=== PATIENT | male | born 1985 | race African-American/Black ===

== ENCOUNTER 2019-04-28 06:52 | Emergency (ER) | payer MEDICAID ==
[~2019-04-28] VITALS: Ht 185.4 cm; Wt 100.0 kg
[2019-04-28 08:27] LABS: CHLORIDE 111 mEq/L (98-107)
[2019-04-28 08:28] LABS: BASOPHILS % 0.1 % (0.0-2.0); EOSINOPHILS % 0.8 % (0.0-5.0); HEMATOCRIT. 46.9 % (42.0-52.0); LYMPHOCYTES % 11.9 % (20.0-50.0); MEAN PLATELET VOLUME 8.7 fl (7.4-10.4); NEUTROPHILS % 81.2 % (40.0-76.0); PLATELET 145 x1000/uL (130-400); RED BLOOD CELL COUNT 5.15 mill/uL (4.7-6.1)
[2019-04-28 08:31] LABS: ETHANOL BLOOD < 10 mg/dL
[2019-04-28 10:15] VITALS: BP 128/70
== END 2019-04-28 10:20 | disposition home or self-care (01) ==
LOC: ER 06:52
DX: G40.909 Epilepsy, unspecified, not intractable, without status epilepticus (principal); F84.0 Autistic disorder; F79 Unspecified intellectual disabilities
CPT/HCPCS: 36415; 80320; 82962; 99283; G0480

== ENCOUNTER 2019-08-31 16:59 | Emergency (ER) | payer MEDICAID ==
[~2019-08-31] VITALS: Ht 185.4 cm; Wt 94.0 kg
[2019-08-31 18:35] LABS: BASOPHILS % 0.4 % (0.0-2.0); EOSINOPHILS % 1.2 % (0.0-5.0); HEMATOCRIT. 46.5 % (42.0-52.0); HEMOGLOBIN. 15.5 g/dL (14.0-18.0); LYMPHOCYTES % 25.1 % (20.0-50.0); MEAN CORPUSCULAR HEMOGLOBIN 30.9 pg (28.0-32.0); MEAN CORPUSCULAR VOLUME 92.8 fL (80.0-94.0); MEAN PLATELET VOLUME 9.2 fl (7.4-10.4); MONOCYTES % 9.7 % (2.0-8.0); NEUTROPHILS % 63.6 % (40.0-76.0); PLATELET 144 x1000/uL (130-400); RED BLOOD CELL COUNT 5.01 mill/uL (4.7-6.1); RED CELL DISTRIBUTION WIDTH 14.4 % (11.6-14.6)
[2019-08-31 18:36] LABS: CHLORIDE 107 mEq/L (98-107)
[2019-08-31 22:07] VITALS: BP 125/78
== END 2019-08-31 22:10 | disposition home or self-care (01) ==
LOC: ER 16:59
DX: G40.909 Epilepsy, unspecified, not intractable, without status epilepticus (principal); R62.50 Unspecified lack of expected normal physiological development in childhood; F84.0 Autistic disorder; W06.XXXA Fall from bed, initial encounter
CPT/HCPCS: 36415; 99283

== ENCOUNTER 2020-06-03 14:36 | Inpatient (IN) | payer MEDICAID ==
[~2020-06-03] VITALS: Ht 172.7 cm; Wt 101.6 kg
[2020-06-03] MEDS ORDERED: SODIUM CHLORIDE 0.9% 1,000 ML IV ONE (16:33)
[2020-06-03] MEDS ORDERED: PROPOFOL 10MG/ML 100ML 100 ML IV ONE ×3 (16:38→20:30)
[2020-06-03] MEDS ORDERED: SUCCINYLCHOLINE CHLORIDE 200MG/10ML IV ONE (16:45)
[2020-06-03] MEDS ORDERED: LEVETIRACETAM 1000MG/100ML 100 ML IV ONE (16:45)
[2020-06-03] MEDS ORDERED: MIDAZOLAM HCL 50 MG in DEXTROSE 5% WATER 40 ML IV ONE (17:00)
[2020-06-03] MEDS ORDERED: LEVETIRACETAM 1000MG/100ML 100 ML IV NR (17:00)
[2020-06-03 17:05] LABS: BASOPHILS % 0.1 % (0.0-2.0); HEMATOCRIT. 48.9 % (42.0-52.0); HEMOGLOBIN. 16.3 g/dL (14.0-18.0); LYMPHOCYTES % 11.6 % (20.0-50.0); MEAN CORPUSCULAR HEMOGLOBIN 31.3 pg (28.0-32.0); MEAN PLATELET VOLUME 9.3 fl (7.4-10.4); MONOCYTES % 7.7 % (2.0-8.0); NEUTROPHILS % 80.6 % (40.0-76.0); PLATELET 174 x1000/uL (130-400); RED CELL DISTRIBUTION WIDTH 14.2 % (11.6-14.6)
[2020-06-03 17:06] LABS: CLARITY URINE CLEAR (CLEAR); COLOR URINE YELLOW (YELLOW); KETONES URINE NEGATIVE (NEGATIVE); LEUKOCYTE ESTERASE URINE NEGATIVE (NEGATIVE); NITRITE URINE NEGATIVE (NEGATIVE); OCCULT BLOOD URINE 2+ (NEGATIVE); PROTEIN URINE 1+ (NEGATIVE); SPECIFIC GRAVITY URINE 1.012 (1.005-1.030); UROBILINOGEN URINE 0.2 E.U./dL (0.2-1.0)
[2020-06-03 17:15] LABS: CHLORIDE 114 mEq/L (98-107)
[2020-06-03] MEDS ORDERED: MIDAZOLAM HCL 50 MG in DEXTROSE 5% WATER 40 ML IV NR (17:15)
[2020-06-03 17:19] LABS: ETHANOL BLOOD < 10 mg/dL
[2020-06-03 17:22] LABS: *AMPHETAMINES SCREEN URINE NEGATIVE (NEGATIVE); *BARBITURATES SCREEN URINE NEGATIVE (NEGATIVE); *BENZODIAZEPINES SCREEN URINE NEGATIVE (NEGATIVE); PHENCYCLIDINE URINE SCREEN NEGATIVE (NEGATIVE)
[2020-06-03 17:23] LABS: *COCAINE SCREEN URINE NEGATIVE (NEGATIVE); CANNABINOID URINE SCREEN NEGATIVE (NEGATIVE); METHADONE URINE SCREEN NEGATIVE (NEGATIVE); OPIATES URINE SCREEN NEGATIVE (NEGATIVE)
[2020-06-03 17:24] LABS: CREATINE KINASE 420 IU/L (39-308)
[2020-06-03] MEDS ORDERED: MIDAZOLAM HCL 100 MG in DEXT 5% WATER 80 ML IV NR (18:15)
[2020-06-03] MEDS ORDERED: DEXT 5%/0.45% NACL KCL 20MEQ/L 1,000 ML IV ONE (20:30)
[2020-06-03] MEDS ORDERED: PIPERACILLIN/TAZ 3.375G PREMIX 50 ML IV SCH (21:00)
[2020-06-03] MEDS: SODIUM CHLORIDE 0.9% INJ 3ML FLUSH IVF SCH (21:15)
[2020-06-03] MEDS: ENOXAPARIN 30MG/0.3ML SYR SUBCUT SCH (21:36)
[2020-06-03 21:49] LABS: BG BASE EXCESS -3.7 mmol/L (-2.0-2.0); BG CARBOXYHEMOGLOBIN 0.2 % (0.5-1.5); BG DEOXYHEMOGLOBIN 0.3 % (0.0-5.0); BG FRACTION INSPIRED OXYGEN 100; BG HCO3 ACT 20.2 mmol/L (22.0-26.0); BG METHEMOGLOBIN 0.4 % (0.0-1.5); BG OXYGEN SATURATION 99.7 % (92.0-98.5); BG OXYHEMOGLOBIN 99.1 % (94.0-97.0); BG PCO2 33.8 mmHg (35.0-45.0); BG PH 7.395 (7.350-7.450); BG PO2 324.9 mmHg (75.0-100.0); BG SAMPLE SITE RIGHT RADIAL; BG TIDAL VOLUME(mL) 550 mL; BG TOTAL HEMOGLOBIN 16.2 g/dL (12.0-18.0); BG VENT MODE VENT - A/C; BG VENT RATE 14 set
[2020-06-04] VITALS (43 sets, daily range): BP systolic 113–144; BP diastolic 54–99
[2020-06-04] MEDS: LORAZEPAM 2MG/ML CPJ IV PRN ×10 (00:51→23:30)
[2020-06-04] MEDS ORDERED: MIDAZOLAM HCL 100 MG in DEXT 5% WATER 80 ML IV PRN (01:00)
[2020-06-04] MEDS: FAMOTIDINE 20MG/2ML VIAL IV SCH ×3 (01:37→20:14)
[2020-06-04] MEDS: ACETAMINOPHEN 325MG TABLET PO PRN ×2 (03:54→15:41)
[2020-06-04] MEDS ORDERED: LAMO200T50 PO (04:36)
[2020-06-04] MEDS ORDERED: LEVE250T2 MT (04:36)
[2020-06-04] MEDS: SODIUM CHLORIDE 0.9% INJ 3ML FLUSH IVF SCH ×3 (06:08→22:00)
[2020-06-04] MEDS: PIPERACILLIN/TAZOBACTAM 3.375 G in DEXT 5% WATER 100 ML IV SCH ×4 (06:19→23:37)
[2020-06-04 06:20] LABS: HEMATOCRIT. 45.3 % (42.0-52.0); HEMOGLOBIN. 15.4 g/dL (14.0-18.0); MEAN CORPUSCULAR HEMOGLOBIN 31.2 pg (28.0-32.0); MEAN CORPUSCULAR VOLUME 91.9 fL (80.0-94.0); MEAN PLATELET VOLUME 8.8 fl (7.4-10.4); PLATELET 124 x1000/uL (130-400); RED BLOOD CELL COUNT 4.93 mill/uL (4.7-6.1); RED CELL DISTRIBUTION WIDTH 14.1 % (11.6-14.6)
[2020-06-04] MEDS: ENOXAPARIN 30MG/0.3ML SYR SUBCUT SCH ×2 (08:16→20:14)
[2020-06-04 08:37] LABS: BG CARBOXYHEMOGLOBIN 0.1 % (0.5-1.5); BG DEOXYHEMOGLOBIN 1.2 % (0.0-5.0); BG FRACTION INSPIRED OXYGEN 45; BG HCO3 ACT 21.5 mmol/L (22.0-26.0); BG METHEMOGLOBIN 0.3 % (0.0-1.5); BG OXYGEN SATURATION 98.8 % (92.0-98.5); BG OXYHEMOGLOBIN 98.4 % (94.0-97.0); BG PCO2 40.9 mmHg (35.0-45.0); BG PH 7.339 (7.350-7.450); BG PO2 150.8 mmHg (75.0-100.0); BG SAMPLE SITE RIGHT RADIAL; BG TIDAL VOLUME(mL) 500 mL; BG TOTAL HEMOGLOBIN 15.7 g/dL (12.0-18.0); BG VENT MODE VENT - A/C; BG VENT RATE 14 set
[2020-06-04] MEDS ORDERED: LEVETIRACETAM 500MG PREMIX 100 ML IV SCH ×2 (09:00)
[2020-06-04 09:50] LABS: PLATELET ESTIMATE SLIGHTLY DECREASED
[2020-06-04 12:50] LABS: BG BASE EXCESS -2.2 mmol/L (-2.0-2.0); BG CARBOXYHEMOGLOBIN 0.3 % (0.5-1.5); BG DEOXYHEMOGLOBIN 1.6 % (0.0-5.0); BG FRACTION INSPIRED OXYGEN 35; BG HCO3 ACT 23.2 mmol/L (22.0-26.0); BG METHEMOGLOBIN 0.5 % (0.0-1.5); BG OXYGEN SATURATION 98.4 % (92.0-98.5); BG OXYHEMOGLOBIN 97.6 % (94.0-97.0); BG PCO2 42.1 mmHg (35.0-45.0); BG PH 7.359 (7.350-7.450); BG PO2 123.7 mmHg (75.0-100.0); BG PRESSURE SUPPORT 8; BG SAMPLE SITE RIGHT RADIAL; BG TOTAL HEMOGLOBIN 16.2 g/dL (12.0-18.0); BG VENT MODE VENT - CPAP
[2020-06-04] MEDS: DEXT 5%/0.45% NACL KCL 20MEQ/L 1,000 ML IV SCH ×2 (15:49→23:30)
[2020-06-04] MEDS: LEVETIRACETAM 1000MG/100ML 100 ML IV SCH (20:15)
[2020-06-05] VITALS (46 sets, daily range): BP systolic 104–145; BP diastolic 61–92
[2020-06-05] MEDS: ACETAMINOPHEN 325MG TABLET PO PRN ×3 (01:20→14:12)
[2020-06-05] MEDS: LORAZEPAM 2MG/ML CPJ IV PRN ×5 (01:30→08:06)
[2020-06-05] MEDS: PIPERACILLIN/TAZOBACTAM 3.375 G in DEXT 5% WATER 100 ML IV SCH ×3 (05:06→17:41)
[2020-06-05 05:45] LABS: BASOPHILS % 0.1 % (0.0-2.0); EOSINOPHILS % 0.3 % (0.0-5.0); HEMATOCRIT. 39.5 % (42.0-52.0); LYMPHOCYTES % 8.5 % (20.0-50.0); MEAN CORPUSCULAR HEMOGLOBIN 31.6 pg (28.0-32.0); MEAN CORPUSCULAR VOLUME 96.4 fL (80.0-94.0); MONOCYTES % 8.3 % (2.0-8.0); NEUTROPHILS % 82.8 % (40.0-76.0); PLATELET 99 x1000/uL (130-400); RED CELL DISTRIBUTION WIDTH 14.5 % (11.6-14.6)
[2020-06-05] MEDS: SODIUM CHLORIDE 0.9% INJ 3ML FLUSH IVF SCH ×3 (05:52→19:37)
[2020-06-05] MEDS: FAMOTIDINE 20MG/2ML VIAL IV SCH ×2 (08:06→21:53)
[2020-06-05] MEDS: LEVETIRACETAM 1000MG/100ML 100 ML IV SCH (08:07)
[2020-06-05] MEDS: DEXT 5%/0.45% NACL KCL 20MEQ/L 1,000 ML IV SCH (08:08)
[2020-06-05] MEDS: ENOXAPARIN 30MG/0.3ML SYR SUBCUT SCH ×2 (08:08→21:00)
[2020-06-05 09:43] LABS: CHLORIDE 116 mEq/L (98-107)
[2020-06-05 09:51] LABS: PHOSPHORUS 2.1 mg/dL (2.5-4.9)
[2020-06-05 10:05] LABS: CREATINE KINASE 1772 IU/L (39-308)
[2020-06-05] MEDS ORDERED: SODIUM PHOS,M-BASIC-D-BASIC 20 MM in DEXT 5% WATER 243.3333 ML IV SCH (13:00)
[2020-06-05 13:01] LABS: BG BASE EXCESS -4.5 mmol/L (-2.0-2.0); BG CARBOXYHEMOGLOBIN 0.7 % (0.5-1.5); BG DEOXYHEMOGLOBIN 15.6 % (0.0-5.0); BG HCO3 ACT 18.7 mmol/L (22.0-26.0); BG METHEMOGLOBIN 0.3 % (0.0-1.5); BG OXYGEN SATURATION 84.2 % (92.0-98.5); BG OXYHEMOGLOBIN 83.4 % (94.0-97.0); BG PCO2 30.3 mmHg (35.0-45.0); BG PH 7.408 (7.350-7.450); BG SAMPLE SITE RIGHT RADIAL; BG TOTAL HEMOGLOBIN 16.9 g/dL (12.0-18.0); BG VENT MODE NASAL CANNULA
[2020-06-05] MEDS: DEXT 5%/0.2% NACL 1,000 ML IV SCH (14:11)
[2020-06-05] MEDS ORDERED: SODIUM CHLORIDE 0.9% 500 ML IV ONE (14:38)
[2020-06-05] MEDS ORDERED: VANCOMYCIN 1500MG in DEXTROSE 5% WATER 250ML IV SCH (15:00)
[2020-06-05] MEDS: LEVETIRACETAM 500MG/5ML CUP PO SCH (21:52)
[2020-06-05] MEDS: LAMOTRIGINE 100MG TABLET NG SCH (21:53)
[2020-06-06] VITALS (35 sets, daily range): BP systolic 104–168; BP diastolic 68–102
[2020-06-06] MEDS: DEXT 5%/0.2% NACL 1,000 ML IV SCH ×3 (00:24→16:59)
[2020-06-06] MEDS: PIPERACILLIN/TAZOBACTAM 3.375 G in DEXT 5% WATER 100 ML IV SCH ×4 (00:24→16:59)
[2020-06-06] MEDS: LORAZEPAM 2MG/ML CPJ IV PRN ×2 (02:02→06:08)
[2020-06-06] MEDS: VANCOMYCIN 1 G PREMIX 200 ML IV SCH ×2 (03:58→14:31)
[2020-06-06] MEDS: SODIUM CHLORIDE 0.9% INJ 3ML FLUSH IVF SCH ×3 (06:00→22:00)
[2020-06-06 06:02] LABS: BASOPHILS % 0.2 % (0.0-2.0); HEMATOCRIT. 43.8 % (42.0-52.0); HEMOGLOBIN. 14.9 g/dL (14.0-18.0); LYMPHOCYTES % 10.1 % (20.0-50.0); MEAN CORPUSCULAR HEMOGLOBIN 31.2 pg (28.0-32.0); MEAN CORPUSCULAR VOLUME 91.8 fL (80.0-94.0); MEAN PLATELET VOLUME 9.6 fl (7.4-10.4); MONOCYTES % 5.9 % (2.0-8.0); NEUTROPHILS % 83.8 % (40.0-76.0); PLATELET 125 x1000/uL (130-400); RED BLOOD CELL COUNT 4.77 mill/uL (4.7-6.1); RED CELL DISTRIBUTION WIDTH 14.2 % (11.6-14.6)
[2020-06-06 06:15] LABS: CHLORIDE 112 mEq/L (98-107)
[2020-06-06 06:29] LABS: PHOSPHORUS 2.4 mg/dL (2.5-4.9)
[2020-06-06 06:44] LABS: CREATINE KINASE 2366 IU/L (39-308)
[2020-06-06 09:06] LABS: BG BASE EXCESS -0.8 mmol/L (-2.0-2.0); BG CARBOXYHEMOGLOBIN 0.5 % (0.5-1.5); BG DEOXYHEMOGLOBIN 0.8 % (0.0-5.0); BG FRACTION INSPIRED OXYGEN 50; BG HCO3 ACT 24.1 mmol/L (22.0-26.0); BG METHEMOGLOBIN 0.3 % (0.0-1.5); BG OXYGEN SATURATION 99.2 % (92.0-98.5); BG OXYHEMOGLOBIN 98.4 % (94.0-97.0); BG PCO2 40.8 mmHg (35.0-45.0); BG PH 7.389 (7.350-7.450); BG PO2 172.3 mmHg (75.0-100.0); BG SAMPLE SITE RIGHT RADIAL; BG TOTAL HEMOGLOBIN 15.3 g/dL (12.0-18.0); BG VENT MODE MASK - VENTI
[2020-06-06] MEDS: FAMOTIDINE 20MG/2ML VIAL IV SCH ×2 (09:34→22:05)
[2020-06-06] MEDS: LAMOTRIGINE 100MG TABLET NG SCH ×2 (09:34→22:05)
[2020-06-06] MEDS: POTASSIUM-SODIUM PHOSPHATE POWDER PACKET PO SCH ×2 (09:35→16:04)
[2020-06-06] MEDS: METOPROLOL TARTRATE 25MG TABLET PO SCH ×2 (09:35→22:12)
[2020-06-06] MEDS: LEVETIRACETAM 500MG/5ML CUP PO SCH ×2 (09:35→22:04)
[2020-06-06] MEDS: ENOXAPARIN 30MG/0.3ML SYR SUBCUT SCH ×2 (09:35→22:05)
[2020-06-06 15:56] LABS: CREATINE KINASE MB FRACTION 5.1 ng/mL (0.5-3.6)
[2020-06-06] MEDS: LACTULOSE 20G/30ML UDC PO SCH ×2 (16:04→22:04)
[2020-06-06 16:46] LABS: CREATINE KINASE 2373 IU/L (39-308)
[2020-06-06] MEDS: METHYLPREDNISOLONE SOD SUCC 40 MG/ML VIAL IV SCH (17:21)
[2020-06-07] VITALS (25 sets, daily range): BP systolic 108–159; BP diastolic 55–94
[2020-06-07] MEDS: ACETYLCYSTEINE 100MG/ML 10% VIAL 4ML INH SCH ×3 (00:06→16:40)
[2020-06-07] MEDS: PIPERACILLIN/TAZOBACTAM 3.375 G in DEXT 5% WATER 100 ML IV SCH ×4 (00:52→17:57)
[2020-06-07] MEDS: METHYLPREDNISOLONE SOD SUCC 40 MG/ML VIAL IV SCH ×3 (00:55→16:30)
[2020-06-07] MEDS: LORAZEPAM 2MG/ML CPJ IV PRN ×2 (01:11→06:12)
[2020-06-07] MEDS: DEXT 5%/0.2% NACL 1,000 ML IV SCH ×2 (03:56→16:32)
[2020-06-07] MEDS: VANCOMYCIN 1 G PREMIX 200 ML IV SCH ×2 (03:56→14:19)
[2020-06-07] MEDS: LACTULOSE 20G/30ML UDC PO SCH (05:56)
[2020-06-07] MEDS: SODIUM CHLORIDE 0.9% INJ 3ML FLUSH IVF SCH ×3 (06:00→22:46)
[2020-06-07 06:51] LABS: HEMATOCRIT. 43.5 % (42.0-52.0); MEAN CORPUSCULAR HEMOGLOBIN 31.7 pg (28.0-32.0); MEAN PLATELET VOLUME 9.4 fl (7.4-10.4); PLATELET 140 x1000/uL (130-400); RED BLOOD CELL COUNT 4.72 mill/uL (4.7-6.1); RED CELL DISTRIBUTION WIDTH 13.5 % (11.6-14.6)
[2020-06-07 07:00] LABS: INR 1.1; PROTHROMBIN TIME 11.6 sec (9.6-11.0)
[2020-06-07 07:19] LABS: CHLORIDE 109 mEq/L (98-107)
[2020-06-07 07:25] LABS: PHOSPHORUS 2.9 mg/dL (2.5-4.9)
[2020-06-07 07:39] LABS: CREATINE KINASE 1964 IU/L (39-308)
[2020-06-07] MEDS: ENOXAPARIN 30MG/0.3ML SYR SUBCUT SCH ×2 (08:28→20:06)
[2020-06-07] MEDS: FAMOTIDINE 20MG/2ML VIAL IV SCH ×2 (08:28→20:05)
[2020-06-07] MEDS: LAMOTRIGINE 100MG TABLET NG SCH ×2 (08:28→20:05)
[2020-06-07] MEDS: METOPROLOL TARTRATE 25MG TABLET PO SCH ×2 (08:29→20:05)
[2020-06-07] MEDS: LEVETIRACETAM 500MG/5ML CUP PO SCH ×2 (08:29→20:06)
[2020-06-07] MEDS: POTASSIUM-SODIUM PHOSPHATE POWDER PACKET PO SCH ×2 (08:29→16:30)
[2020-06-07] MEDS: IPRATROPIUM/ALBUTEROL 0.5-3(2.5)MG/3ML NEB HHN PRN ×3 (08:39→16:40)
[2020-06-07 09:04] LABS: LEVETIRACETAM / KEPPRA 13.9 ug/mL (10.0-40.0)
[2020-06-07 09:34] LABS: PLATELET ESTIMATE NORMAL
[2020-06-07] MEDS ORDERED: VANCOMYCIN 1500MG in DEXTROSE 5% WATER 250ML IV SCH (23:30)
[2020-06-08] VITALS: BP 146/82
[2020-06-08] MEDS: IPRATROPIUM/ALBUTEROL 0.5-3(2.5)MG/3ML NEB HHN PRN (00:06)
[2020-06-08] MEDS: ACETYLCYSTEINE 100MG/ML 10% VIAL 4ML INH SCH (00:06)
[2020-06-08] MEDS: PIPERACILLIN/TAZOBACTAM 3.375 G in DEXT 5% WATER 100 ML IV SCH (00:23)
[2020-06-08] MEDS: METHYLPREDNISOLONE SOD SUCC 40 MG/ML VIAL IV SCH (00:24)
[2020-06-08 01:00] VITALS: BP 129/57
[2020-06-08] MEDS ORDERED: LACTULOSE 20G/30ML UDC PO SCH (09:00)
== END 2020-06-08 01:55 | disposition short-term general hospital (02) | DRG 53 ==
LOC: ER 14:40 → CVICU 18:43 → EDBEDREQ 18:59 → EDBEDREQSVC 18:59 → EDBEDREQ 19:00 → EDBEDREQTM 19:31 → ENRESERV 06-04 02:57
PROVIDERS: ADMIT Ophthalmology; ATTEND Ophthalmology
PROC: 0BH17EZ Insertion of Endotracheal Airway into Trachea, Via Natural or Artificial Opening (ICD-10-PCS; 2020-06-03)
PROC: 5A1935Z Respiratory Ventilation, Less than 24 Consecutive Hours (ICD-10-PCS; 2020-06-03)
PROC: 4A00X4Z Measurement of Central Nervous Electrical Activity, External Approach (ICD-10-PCS; principal; 2020-06-07)
DX: G40.901 Epilepsy, unspecified, not intractable, with status epilepticus (principal); J96.00 Acute respiratory failure, unspecified whether with hypoxia or hypercapnia; J69.0 Pneumonitis due to inhalation of food and vomit; N17.9 Acute kidney failure, unspecified; E87.2 Acidosis; M62.82 Rhabdomyolysis; I10 Essential (primary) hypertension; E87.0 Hyperosmolality and hypernatremia; R00.0 Tachycardia, unspecified; E83.39 Other disorders of phosphorus metabolism; E72.20 Disorder of urea cycle metabolism, unspecified; T85.528A Displacement of other gastrointestinal prosthetic devices, implants and grafts, initial encounter; Y83.8 Other surgical procedures as the cause of abnormal reaction of the patient, or of later complication, without mention of misadventure at the time of the procedure; Z78.1 Physical restraint status; Z79.899 Other long term (current) drug therapy; Y92.89 Other specified places as the place of occurrence of the external cause
CPT/HCPCS: 36415; 36600; 71045; 80048; 80053; 80202; 80305; 80320; 81003; 82140; 82375; 82542; 82550; 82553; 82805; 82962; 83036; 83605; 83735; 84100; 84145; 84443; 84484; 85025; 87070; 92610; 93005; 93306; 93970; 94002; 94003; 94640; 95816; 99291; J1650; J1953; J2060; J2250; J2543; J2704; J2920; J3370; J3490; J7030; J7060; J7608; G0480

== ENCOUNTER 2023-10-12 17:25 | Emergency (ER) | payer MEDICAID, OTHER ==
[~2023-10-12] VITALS: Ht 182.9 cm; Wt 91.0 kg
[~2023-10-12 17:25] MED LIST: LAMO200T50 PO; LEVE250T2 MT
[2023-10-12 17:28] VITALS: BP 147/91; PULSE 103; RESP 16; TEMP 97.1; O2SAT 95
[2023-10-12] MEDS ORDERED: LEVETIRACETAM 500MG TABLET PO ONE (17:45)
== END 2023-10-12 18:17 | disposition left against medical advice (07) ==
LOC: ER 17:25
DX: R56.9 Unspecified convulsions (principal); E11.9 Type 2 diabetes mellitus without complications
CPT/HCPCS: 99283

== ENCOUNTER 2023-11-12 20:43 | Emergency (ER) | payer MEDICAID, OTHER ==
[~2023-11-12] VITALS: Ht 190.5 cm; Wt 120.0 kg
[2023-11-12 20:54] VITALS: O2SAT 97
[2023-11-12] MEDS ORDERED: LEVETIRACETAM 250MG TABLET PO ONE (21:15)
[2023-11-12] MEDS ORDERED: LEVETIRACETAM 250MG TABLET PO NR (21:45)
[2023-11-12] MEDS ORDERED: LIDOCAINE HCL 1% 20ML VIAL (Pyxis) INJ INFIL ONE (21:45)
[2023-11-13 04:00] VITALS: BP 136/76; PULSE 93; RESP 14
== END 2023-11-13 06:44 | disposition home or self-care (01) ==
LOC: ER 20:43
DX: S01.81XA Laceration without foreign body of other part of head, initial encounter (principal); R56.9 Unspecified convulsions; E11.9 Type 2 diabetes mellitus without complications; X58.XXXA Exposure to other specified factors, initial encounter; Y93.89 Activity, other specified; Y92.89 Other specified places as the place of occurrence of the external cause; Y99.8 Other external cause status
CPT/HCPCS: 99283; 12013; J3490

== ENCOUNTER 2023-12-30 17:31 | Emergency (ER) | payer MEDICAID, OTHER ==
[~2023-12-30] VITALS: Ht 175.3 cm; Wt 100.0 kg
[2023-12-30 17:38] VITALS: O2SAT 97
[2023-12-30] MEDS ORDERED: LORAZEPAM 2MG/ML INJ IV ONE ×2 (18:00→20:15)
[2023-12-30] MEDS ORDERED: SODIUM CHLORIDE 0.9% 1,000 ML IV ONE (18:00)
[2023-12-30] MEDS ORDERED: LEVETIRACETAM 500MG PREMIX 100 ML IV ONE (18:15)
[2023-12-30 18:36] LABS: BASOPHILS % 0.6 % (0.0-2.0); EOSINOPHILS % 0.6 % (0.0-5.0); HEMATOCRIT. 46.4 % (42.0-52.0); HEMOGLOBIN. 15.5 g/dL (14.0-18.0); LYMPHOCYTES % 18.5 % (20.0-50.0); MEAN CORPUSCULAR HEMOGLOBIN 31.2 pg (28.0-32.0); MEAN CORPUSCULAR HGB CONC 33.4 g/dL (31.0-37.0); MEAN CORPUSCULAR VOLUME 93.5 fL (80.0-94.0); MEAN PLATELET VOLUME 9.2 fl (7.4-10.4); MONOCYTES % 8.1 % (2.0-8.0); NEUTROPHILS % 72.2 % (40.0-76.0); PLATELET 184 x1000/uL (130-400); RED BLOOD CELL COUNT 4.97 mill/uL (4.7-6.1); RED CELL DISTRIBUTION WIDTH 14.3 % (11.6-14.6); WHITE BLOOD COUNT 5.7 x1000/uL (4.5-11.0)
[2023-12-30 18:51] LABS: ALANINE AMINOTRANSFERASE 12 IU/L (10-49); ALBUMIN 4.5 g/dL (3.2-4.8); ASPARTATE AMINOTRANSFERASE 19 IU/L (<34); BILIRUBIN TOTAL 0.4 mg/dL (0.1-1.0); CALCIUM 9.4 mg/dL (8.7-10.4); CARBON DIOXIDE 19 mEq/L (21-32); CHLORIDE 105 mEq/L (98-107); CREATININE 1.1 mg/dL (0.6-1.3); GLUCOSE 87 mg/dL (70-105); POTASSIUM 3.9 mEq/L (3.5-5.1); PROTEIN TOTAL 7.8 g/dL (6.0-8.3); SODIUM 138 mEq/L (136-145); UREA NITROGEN BLOOD 11 mg/dL (9-23)
[2023-12-30 18:54] LABS: ETHANOL BLOOD < 10 mg/dL (<10); PHENYTOIN < 2.0 ug/mL (10-20); VALPROIC ACID < 3.0 ug/mL (50-100)
[2023-12-30] MEDS ORDERED: HALOPERIDOL LACTATE 5MG/ML VIAL IM ONE (20:15)
[2023-12-30] MEDS ORDERED: DIPHENHYDRAMINE 50MG/ML VIAL IV ONE (20:15)
[2023-12-30] MEDS ORDERED: LORAZEPAM 2MG/ML INJ IV NR (20:30)
[2023-12-31 07:14] VITALS: BP 120/76; PULSE 83; RESP 17; TEMP 98.7
== END 2023-12-31 07:21 | disposition home or self-care (01) ==
LOC: ER 17:31
DX: R56.9 Unspecified convulsions (principal); F84.0 Autistic disorder; E11.9 Type 2 diabetes mellitus without complications
CPT/HCPCS: 80053; 80320; 80185; 80165; 85025; 36415; 96361; 96365; 96372; 96375; 99285; J1953; J1200; J1630; J2060; J7030; G0480